=== PATIENT | male | born 1985 | race Two or more races ===

== ENCOUNTER 2021-04-30 03:55 | Emergency (ER) | payer SELFPAY ==
[~2021-04-30] VITALS: Ht 160 cm; Wt 68.0 kg
[2021-04-30] MEDS ORDERED: LIDOCAINE 1% HCL (LOCAL ANESTH.) INJ 20ML MDV ID ONE (04:15)
[2021-04-30 04:56] VITALS: BP 134/90
[2021-04-30] MEDS ORDERED: TETANUS-DIPTH-ACEL PERTUSSIS 0.5ML SYR Tdap IM ONE (05:00)
[2021-04-30] MEDS ORDERED: cefTRIAXone SOD 1,000 MG VL IM ONE (05:00)
== END 2021-04-30 05:43 | disposition home or self-care (01) ==
LOC: ER 03:55
DX: S01.81XA Laceration without foreign body of other part of head, initial encounter (principal); W19.XXXA Unspecified fall, initial encounter; Y93.89 Activity, other specified; Y92.89 Other specified places as the place of occurrence of the external cause; Y99.8 Other external cause status
CPT/HCPCS: 12013; 90471; 90715; 96372; 99284; J0696; J2001